=== PATIENT | male | born 1990 | race Hispanic/Latino ===

== ENCOUNTER 2019-10-15 21:21 | Emergency (ER) | payer BC ==
[2019-10-15] MEDS ORDERED: KETOROLAC 30 MG/ML INJ ONE (21:50)
--- NOTE | 2019-10-15 22:28 | EDPHYS ---
Physician Documentation [facility] Name: Kiran Chong Age: 29 yrs Sex: Male : 1990 Arrival Date: 10/15/2019 Time: 21:25 Bed 13 Private MD: ED Physician Vahe Pruitt HPI: 10/16 01:57 This 29 yrs old Male presents to ER via Ambulatory with complaints of SWOLLEN tw4 KNEE. 01:57 The patient presents with an injury, pain, that is acute. The complaints affect the tw4 right knee. Context: The problem was sustained at work, resulted from a direct blow, by industrial equipment. Onset: The symptoms/episode began/occurred today. Modifying factors: The symptoms are alleviated by remaining still, the symptoms are aggravated by movement, weight bearing. Associated signs and symptoms: The patient has no apparent associated signs or symptoms. Treatment prior to arrival includes: no previous treatment. Severity of symptoms: At their worst the symptoms were moderate, in the emergency department the symptoms are unchanged. The patient has not experienced similar symptoms in the past. Historical: - Allergies: 10/15 21:40 No Known Allergies; jb4 - Home Meds: 21:40 None [Active]; jb4 - PMHx: 21:40 None; jb4 - PSHx: 21:40 finger; jb4 - Immunization history:: Adult Immunizations up to date. - Social history:: Smoking status: Patient/guardian denies using tobacco, Patient uses alcohol, occasionally. Patient/guardian denies using street drugs. - Ebola Screening: : No symptoms or risks identified at this time. ROS: 10/16 01:57 MS/extremity: Positive for injury or acute deformity, swelling, tenderness, of the tw4 right knee. 04:29 Constitutional: Negative for fever, chills, and weight loss, Cardiovascular: Negative tw4 for chest pain, palpitations, and edema, Respiratory: Negative for shortness of breath, cough, wheezing, and pleuritic chest pain, Abdomen/GI: Negative for abdominal pain, nausea, vomiting, diarrhea, and constipation, Back: Negative for injury and pain, Skin: Negative for injury, rash, and discoloration, Neuro: Negative for headache, weakness, numbness, tingling, and seizure. Exam: 01:57 Musculoskeletal/extremity: Extremities: tw4 04:28 Constitutional: This is a well developed, well nourished patient who is awake, alert, tw4 and in no acute distress. Head/Face: Normocephalic, atraumatic. Chest/axilla: Normal chest wall appearance and motion. Nontender with no deformity. No lesions are appreciated. Cardiovascular: Regular rate and rhythm with a normal S1 and S2. No gallops, murmurs, or rubs. Normal PMI, no JVD. No pulse deficits. Respiratory: Lungs have equal breath sounds bilaterally, clear to auscultation and percussion. No rales, rhonchi or wheezes noted. No increased work of breathing, no retractions or nasal flaring. Abdomen/GI: Soft, non-tender, with normal bowel sounds. No distension or tympany. No guarding or rebound. No evidence of tenderness throughout. 04:28 Musculoskeletal/extremity: Extremities: noted in the right knee: erythema, pain, swelling, tenderness, There is no evidence of decreased ROM, laceration, puncture. Vital Signs: 10/15 21:40 BP 134 / 71; Pulse 86; Resp 16; Temp 99.0(O); Pulse Ox 99% on R/A; Weight 115.67 kg jb4 (R); Height 6 ft. 1 in. (185.42 cm) (R); Pain 3/10; 21:40 Body Mass Index 33.64 (115.67 kg, 185.42 cm) jb4 MDM: 21:37 Patient medically screened. tw4 10/16 04:27 Differential diagnosis: closed fracture, contusion. Data reviewed: vital signs, nurses tw4 notes. Data interpreted: Pulse oximetry: Interpretation: normal. Test interpretation: by ED physician or midlevel provider: plain radiologic studies. Counseling: I had a detailed discussion with the patient and/or guardian regarding: the historical points, exam findings, and any diagnostic results supporting the discharge/admit diagnosis, radiology results. Special discussion: I discussed with the patient/guardian in detail that at this point there is no indication for admission to the hospital. It is understood, however, that if the symptoms persist or worsen the patient needs to return immediately for re-evaluation. Administered Medications: 10/15 21:52 Drug: TORadol 60 mg Route: IM; Site: right gluteus; jb4 22:34 Follow up: Response: No adverse reaction jb4 22:35 Drug: Cleocin 300 mg Route: PO; jb4 22:35 Follow up: Response: Medication administered at discharge. 4 Disposition: 10/15/19 22:28 Discharged to Home. Impression: Cellulitis of right lower limb. - Condition is Stable. - Discharge Instructions: Cellulitis, Adult. - Prescriptions for Cleocin 300 mg Oral Capsule - take 1 capsule by ORAL route every 6 hours for 10 days; 40 capsule. Ibuprofen 800 mg Oral Tablet - take 1 tablet by ORAL route every 8 hours As needed take with food; 30 tablet. - Medication Reconciliation Form, Thank You Letter, Antibiotic Education, Prescription Opioid Use form. - Follow up: Private Physician; When: Upon discharge from the Emergency Department; Reason: Recheck today's complaints, Continuance of care. - Problem is new. - Symptoms have improved. Signatures: Anupam Lewis RN RN jb4 Vahe Pruitt MD MD tw4 Corrections: (The following items were deleted from the chart) 22:37 22:28 10/15/2019 22:28 Discharged to Home. Impression: Cellulitis of right lower limb. jb4 Condition is Stable. Forms are Medication Reconciliation Form, Thank You Letter, Antibiotic Education, Prescription Opioid Use. Follow up: Private Physician; When: Upon discharge from the Emergency Department; Reason: Recheck today's complaints, Continuance of care. Problem is new. Symptoms have improved. tw4
--- NOTE | 2019-10-15 22:28 | ER ---
Nurse's Notes [facility] Name: Kiran Chong Age: 29 yrs Sex: Male : 1990 Arrival Date: 10/15/2019 Time: 21:25 Bed 13 Private MD: Diagnosis: Cellulitis of right lower limb Presentation: 10/15 21:38 Presenting complaint: Patient states: I have had discomfort redness and warmth in my jb4 right knee for the past 2 days and today I noticed it start swelling after I bumped it at work. Transition of care: patient was not received from another setting of care. Onset of symptoms was October 13, 2019. Risk Assessment: Do you want to hurt yourself or someone else? Patient reports no desire to harm self or others. Initial Sepsis Screen: Does the patient meet any 2 criteria? No. Patient's initial sepsis screen is negative. Does the patient have a suspected source of infection? No. Patient's initial sepsis screen is negative. Care prior to arrival: None. 21:38 Method Of Arrival: Ambulatory jb4 21:38 Acuity: FERMÍN 4 jb4 Historical: - Allergies: 21:40 No Known Allergies; jb4 - Home Meds: 21:40 None [Active]; jb4 - PMHx: 21:40 None; jb4 - PSHx: 21:40 finger; jb4 - Immunization history:: Adult Immunizations up to date. - Social history:: Smoking status: Patient/guardian denies using tobacco, Patient uses alcohol, occasionally. Patient/guardian denies using street drugs. - Ebola Screening: : No symptoms or risks identified at this time. Screenin:42 Abuse screen: Denies threats or abuse. Nutritional screening: No deficits noted. jb4 Tuberculosis screening: No symptoms or risk factors identified. Fall Risk None identified. Assessment: 21:42 General: Appears in no apparent distress. comfortable, Behavior is calm, cooperative, jb4 appropriate for age. Pain: Complains of pain in right knee Pain does not radiate. Pain currently is 3 out of 10 on a pain scale. at worst was 7 out of 10 on a pain scale. Neuro: Level of Consciousness is awake, alert, obeys commands, Oriented to person, place, time, situation. Cardiovascular: Patient's skin is warm and dry. Respiratory: Airway is patent Respiratory effort is even, unlabored, Respiratory pattern is regular, symmetrical. GI: No signs and/or symptoms were reported involving the gastrointestinal system. : No signs and/or symptoms were reported regarding the genitourinary system. EENT: No signs and/or symptoms were reported regarding the EENT system. Derm: Skin is intact, Skin is pink, warm \T\ dry. Right knee has a quarter sized reddened area in the middle of the anterior aspect. Knee is swollen and hot to the touch. Musculoskeletal: Circulation, motion, and sensation intact. Range of motion: intact in all extremities. 22:36 Reassessment: Patient appears in no apparent distress at this time. Patient and/or jb4 family updated on plan of care and expected duration. Pain level reassessed. Patient is alert, oriented x 3, equal unlabored respirations, skin warm/dry/pink. Patient states feeling better. Vital Signs: 21:40 BP 134 / 71; Pulse 86; Resp 16; Temp 99.0(O); Pulse Ox 99% on R/A; Weight 115.67 kg jb4 (R); Height 6 ft. 1 in. (185.42 cm) (R); Pain 3/10; 21:40 Body Mass Index 33.64 (115.67 kg, 185.42 cm) jb4 ED Course: 21:25 Patient arrived in ED. jg7 21:36 Vahe Pruitt MD is Attending Physician. tw4 21:38 Anupam Lewis, RN is Primary Nurse. jb4 21:39 Triage completed. jb4 21:40 Arm band placed on right wrist. jb4 21:42 Patient has correct armband on for positive identification. Bed in low position. Call jb4 light in reach. Side rails up X 1. Pulse ox on. NIBP on. 22:36 No provider procedures requiring assistance completed. Patient did not have IV access jb4 during this emergency room visit. Administered Medications: 21:52 Drug: TORadol 60 mg Route: IM; Site: right gluteus; jb4 22:34 Follow up: Response: No adverse reaction jb4 22:35 Drug: Cleocin 300 mg Route: PO; jb4 22:35 Follow up: Response: Medication administered at discharge. jb4 Outcome: 22:28 Discharge ordered by . tw4 22:36 Discharged to home ambulatory. jb4 22:36 Condition: stable 22:36 Discharge instructions given to patient, Instructed on discharge instructions, follow up and referral plans. no drinking with medication, medication usage, Demonstrated understanding of instructions, follow-up care, medications, Prescriptions given X 2. 22:37 Patient left the ED. jb4 Signatures: Anupam Lewis, RN RN jb4 Vahe Pruitt MD MD tw4 Marianela Ho jg7 Corrections: (The following items were deleted from the chart) 21:54 21:42 Derm: Skin is intact, Skin is pink, warm \T\ dry. jb4 jb4
[2019-10-15] MEDS ORDERED: CLINDAMYCIN HCL 150 MG CAP ONE (22:33)
[2019-10-15 23:02] VITALS: BP 134/71; TEMP 99; O2SAT 99
== END 2019-10-15 22:37 | disposition home or self-care (01) ==
LOC: ER 21:21
DX: L03.115 Cellulitis of right lower limb (principal)
CPT/HCPCS: 96372; 99283

== ENCOUNTER 2022-07-12 15:03 | Emergency (ER) | payer BC ==
--- OUTSIDE RECORDS SUMMARY | 2022-07-12 15:09 | XMS REPORT | Continuity of Care Document ---
:1990 Author Organization [facility] t Address [address] [place] [address] Care Team Providers Name Role Phone Asked, No Pcp Primary Care Physician Unavailable Only, Ang Db Test Attending Clinician Unavailable Angelique Urrutia MD Attending Clinician ANGELIQUE URRUTIA Attending Clinician Unavailable LUCITA SANFORD Attending Clinician Unavailable Payers Payer Name Policy Type Policy Number Effective Date Expiration Date S ource Problems Condition Condition Condition Status Onset Resolution Last Treating Co mments Source Name Details Category Date Date Treatment Clinician Date Gastroesop Gastroesop Disease Active Overview : [facility] hageal hageal 7-[address] reflux reflux 00:00: g of this [facility]osp[facility] disease disease 00 note l might be different from the original. Added automatic ally from request for surgery [id number] Morbid Morbid Disease Active [facility] obesity obesity 6-24 st due to due to 00:00: Hospita excess excess 00 l calories calories Allergies, Adverse Reactions, Alerts Allergy Allergy Status Severity Reaction(s) Onset Inactive Treating Comm ents Source Name Type Date Date Clinician NO KNOWN Drug Active Univers ALLERGIE Class ity of S [facility] Family History Family Member Diagnosis Comments Start Date Stop Date Source Natural father [facility] Natural mother [facility] Paternal grandmother Diabetes [facility] Paternal grandmother Hypertension [facility] Social History Social Habit Start Date Stop Date Quantity Comments Source Exposure to Not sure [facility] SARS-CoV-2 (event) [facility] Alcohol intake 2019-05-17 2019-05-17 Current drinker [facility] 00:00:00 00:00:00 of alcohol Hospital (finding) Cigarette 2019-04-30 2019-04-30 [facility] 00:[facility]00 00:00:00 Hospital Tobacco use and 2019-04-30 2019-04-30 Smokeless [facility] exposure 00:00:00 00:00:00 tobacco non-user Hospital Alcohol Comment 2019-04-30 2019-04-30 very few [facility] 00:00:00 00:00:00 Hospital Cigarettes smoked 2019-04-30 2019-04-[address] current (pack per 00:00:00 00:00:00 Hospita l day) - Reported History of tobacco 2015-04-30 Current smoker [facility] use 00:[facility]:00 Hospital Sex Assigned At [birth year] [facility] 00:[facility]:00 [facility]:00 Hospital Smoking Status Start Date Stop Date Source Unknown if ever smoked [facility] Ex-smoker 2019-04-30 00:00:00 2019-04-30 00:00:[facility] Medications Ordered Filled Start Stop Current Ordering Indication Dosage Frequency Signature Comments Components Source Medication Medication Date Date Medication? Clinician (SIG) Name Name No known 2020-11 No Univers medications - ity of 10:29: [address] ergocalcife 2019-0 Yes [id number] TAKE ONE [facility] 9-23 CAPSULE BY (VITAMIN 00:00: MOUTH 2 Hospit a D2) 50,000 00 TIMES A l unit WEEK capsule Procedures This patient has no known procedures. Plan of Care Planned Activity Planned Date Details Comments Source Future Scheduled 2022-07-10 HEPATITIS B [facility] Test 02:13:30 VACCINES (1 of 3 - 3-dose series) [code = HEPATITIS B VACCINES (1 of 3 - 3-dose series)] Future Scheduled 2022-07-10 COVID-[address] [facility] Test 02:13:30 (#1) [code = COVID-19 VACCINE (#1)] Future Scheduled 2022-07-10 INFLUENZA VACCINE [facility] Test 02:13:30 [code = INFLUENZA VACCINE] Encounters Start End Encounter Admission Attending Care Care Encounter Source Date/Time Date/Time Type Type Clinicians Facility Department ID 2021-11-03 2021-11-03 Laboratory Only, Ang Db Test [facility] [id number] Univers 10:30:00 10:45:00 Only Renan Angelique [facility] [id number] [facility] [id number] Frank as KAMILLA?BLEA [id number] [address] MEDICAL OFFICE BUILDING 2021-11-03 2021-11-03 Outpatient R RENAN [facility] [id number] Univers 10:30:00 10:39:49 ANGELIQUE [facility] 2021-11-03 2021-11-03 Outpatient R [facility] [id number] Univers 10:30:00 10:30:00 [id number] [facility] 2020-07-20 2020-07-20 [facility] [id number] Univers 14:40:00 14:40:00 LUCITA [facility] Results This patient has no known results.
[2022-07-12] MEDS ORDERED: DIPHENHYDRAMINE 50 MG/ML VIAL ONE (15:35)
[2022-07-12] MEDS ORDERED: METHYLPREDNISOLONE 125 MG INJ ONE (15:35)
[2022-07-12] MEDS ORDERED: FAMOTIDINE 20 MG/2 ML VIAL IV ONE (15:36)
[2022-07-12] MEDS ORDERED: ALBUTEROL 2.5 MG/3 ML NEB SOL ONE (15:36)
[2022-07-12] MEDS ORDERED: NA CHLORIDE 0.9% 1,000 ML ONE (15:36)
--- NOTE | 2022-07-12 17:09 | ER ---
Nurse's Notes [facility] Name: Kiran Chong Age: 32 yrs Sex: Male : 1990 Arrival Date: 07/12/2022 Time: 15:06 Bed 10 Private MD: Diagnosis: Bee allergy status Presentation: 07/12 15:23 Chief complaint: Patient states: I was mowing the lawn and I got stung by a bee behind bm7 my knee and now I have bumps everywhere and my chest is tight. Coronavirus screen: At this time, the client does not indicate any symptoms associated with coronavirus-19. Ebola Screen: No symptoms or risks identified at this time. Onset: The symptoms/episode began/occurred suddenly, 45 minute(s) ago. Anaphylaxis evaluation, chest pain. Initial Sepsis Screen: Does the patient meet any 2 criteria? No. Patient's initial sepsis screen is negative. Does the patient have a suspected source of infection? No. Patient's initial sepsis screen is negative. Risk Assessment: Do you want to hurt yourself or someone else? Patient reports no desire to harm self or others. Onset of symptoms was July 12, 2022 at 14:20. 15:23 Method Of Arrival: Ambulatory [facility] 15:23 Acuity: FERMÍN 3 bm7 Triage Assessment: 15:25 General: Appears in no apparent distress. uncomfortable, Behavior is anxious. Pain: bm7 Denies pain. EENT: No deficits noted. No signs and/or symptoms were reported regarding the EENT system. Oral mucosa is moist. Throat is clear. Neuro: No deficits noted. Cardiovascular: Capillary refill < 3 seconds Patient's skin is warm and dry. Chest pain is described as vague. Respiratory: Airway is patent Respiratory effort is even, unlabored, Respiratory pattern is regular, symmetrical, Breath sounds are clear bilaterally. GI: No deficits noted. No signs and/or symptoms were reported involving the gastrointestinal system. : No deficits noted. No signs and/or symptoms were reported regarding the genitourinary system. Derm: No deficits noted. No signs and/or symptoms reported regarding the dermatologic system. Musculoskeletal: No deficits noted. No signs and/or symptoms reported regarding the musculoskeletal system. Historical: - Allergies: 15:25 No Known Allergies; bm7 - Home Meds: 15:25 None [Active]; bm7 - PMHx: 15:25 None; bm7 - PSHx: 15:25 None; bm7 - Immunization history:: Adult Immunizations up to date, Client reports having NOT received the Covid vaccine. - Social history:: Smoking status: Patient denies any tobacco usage or history of. Screenin:30 Abuse screen: Denies threats or abuse. Denies injuries from another. Nutritional kb3 screening: No deficits noted. Tuberculosis screening: No symptoms or risk factors identified. Fall Risk None identified. Assessment: 14:30 General: Appears in no apparent distress. comfortable, Behavior is calm, cooperative, kb3 Received care of pt from triage. 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 States he removed a stinger from his scalp but then started experiencing redness and hives on the right side of his neck. Mild redness noted to right neck, behind ear. No distress, no difficulty breathing. Pt reports mild burning/itching.. Respiratory: Airway is patent Respiratory effort is even, unlabored, Breath sounds are clear bilaterally. Derm: Rash noted that is red, right neck, behind ear. 16:00 General: Pt reports feeling much better. States "the lumps on my neck are all gone." No kb3 redness or hives noted on or around neck/face. Pt states ease of breathing, no distress noted.. Vital Signs: 15:23 BP 119 / 93; Pulse 88; Resp 16; Temp 98.2(TE); Pulse Ox 100% on R/A; Weight 115.67 kg [facility] (R); Height 6 ft. 1 in. (185.42 cm); Pain 0/10; 16:00 BP 121 / 73; Pulse 82; Resp 18; Pulse Ox 100% ; kb3 17:00 BP 117 / 72; Pulse 80; Resp 18; Pulse Ox 98% ; kb3 17:30 BP 122 / 71; Pulse 78; Resp 20; Pulse Ox 98% ; kb3 15:23 Body Mass Index 33.64 (115.67 kg, 185.42 cm) 7 ED Course: 14:30 Patient has correct armband on for positive identification. Bed in low position. Call kb3 light in reach. Side rails up X2. Warm blanket given. Pillow given. 14:30 No provider procedures requiring assistance completed. kb3 15:06 Patient arrived in ED. mr 15:18 Pb Adams PA is PHCP. cp 15:18 Erwin Mccord MD is Attending Physician. cp 15:20 Erin Boudreaux, RN is Primary Nurse. kb3 15:25 Triage completed. bm7 15:25 Arm band placed on right wrist. bm7 16:15 Inserted saline lock: 20 gauge in right forearm, using aseptic technique. kc6 17:35 IV discontinued, intact, bleeding controlled, No redness/swelling at site. kb3 Administered Medications: 15:00 Drug: NS 0.9% 1000 ml Route: IV; Rate: 1 bolus; Site: right antecubital; kb3 16:44 Follow up: Response: No adverse reaction; IV Status: Completed infusion; IV Intake: kb3 1000ml 15:30 Drug: Albuterol 2.5 mg Route: Inhalation; kb3 16:45 Follow up: Response: No adverse reaction kb3 15:32 Drug: Benadryl (diphenhydrAMINE) 50 mg Route: IVP; Site: right antecubital; kb3 16:45 Follow up: Response: No adverse reaction kb3 15:35 Drug: Pepcid (famotidine) 20 mg Route: IVP; Site: right antecubital; kb3 16:45 Follow up: Response: No adverse reaction kb3 15:38 Drug: SOLU-Medrol (methylPrednisoLONE) 125 mg Route: IVP; Site: right antecubital; kb3 16:45 Follow up: Response: No adverse reaction kb3 Medication: 14:30 VIS not applicable for this client. kb3 Intake: 16:44 IV: 1000ml; Total: 1000ml. kb3 Outcome: 17:08 Discharge ordered by . cp 17:37 Discharged to home ambulatory. kb3 17:37 Condition: improved 17:37 Discharge instructions given to patient, Instructed on discharge instructions, follow up and referral plans. medication usage, Demonstrated understanding of instructions, follow-up care, medications, Prescriptions given X 3. 17:37 Patient left the ED. kb3 Signatures: Yancy Wheeler mr Pb Adams PA PA Shital Cornell RN RN bm7 Taylor Tolliver kc6 Erin Boudreaux, RN RN kb3 Corrections: (The following items were deleted from the chart) 16:50 14:30 General: Appears in no apparent distress. comfortable, Behavior is calm, kb3 cooperative, Received care of pt from triage. 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 States he removed a stinger from his scalp but then started experiencing redness and hives on the right side of his neck. Mild redness noted to right neck, behind ear. No distress, no difficulty breathing. Pt reports mild burning/itching.. kb3 16:50 14:30 Respiratory: Airway is patent Respiratory effort is even, unlabored, Breath kb3 sounds are clear bilaterally. kb3 16:50 14:30 Derm: Rash noted that is red, right neck, behind ear kb3 kb3 16:50 14:30 Respiratory: Airway is patent Respiratory effort is even, unlabored, Breath kb3 sounds are clear bilaterally. kb3 16:53 15:30 General: Appears in no apparent distress. comfortable, Behavior is calm, kb3 cooperative, Received care of pt from triage. 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 States he removed a stinger from his scalp but then started experiencing redness and hives on the right side of his neck. Mild redness noted to right neck, behind ear. No distress, no difficulty breathing. Pt reports mild burning/itching.. kb3 16:53 15:30 Respiratory: Airway is patent Respiratory effort is even, unlabored, Breath kb3 sounds are clear bilaterally. kb3 16:53 15:30 Derm: Rash noted that is red, right neck, behind ear kb3 kb3
--- NOTE | 2022-07-12 17:09 | EDPHYS ---
Physician Documentation [facility] Name: Kiran Chong Age: 32 yrs Sex: Male : 1990 Arrival Date: 07/12/2022 Time: 15:06 Bed 10 Private MD: ED Physician Erwin Mccord HPI: 07/12 15:25 This 32 yrs old Male presents to ER via Ambulatory with complaints of Bee cp Sting, Chest Tightness. 15:25 The patient presents with rash, of the chest, shortness of breath, chest tightness. cp 15:25 Onset: The symptoms/episode began/occurred suddenly, just prior to arrival. Associated cp signs and symptoms: Pertinent negatives: chest pain, fever, swelling, vomiting. Possible causes: bees. At home the patient or guardian has treated the symptoms with nothing. Severity of symptoms: in the emergency department the symptoms are unchanged. Historical: - Allergies: 15:25 No Known Allergies; bm7 - Home Meds: 15:25 None [Active]; bm7 - PMHx: 15:25 None; bm7 - PSHx: 15:25 None; bm7 - Immunization history:: Adult Immunizations up to date, Client reports having NOT received the Covid vaccine. - Social history:: Smoking status: Patient denies any tobacco usage or history of. ROS: 15:30 Constitutional: Negative for body aches, chills, fever, poor PO intake. cp 15:30 Eyes: Negative for injury, pain, redness, and discharge. cp 15:30 ENT: Negative for sore throat, difficulty swallowing, difficulty handling secretions. 15:30 Cardiovascular: Positive for chest tightness. 15:30 Respiratory: Positive for shortness of breath. 15:30 Abdomen/GI: Negative for vomiting, diarrhea, constipation. 15:30 Skin: Positive for rash, of the chest. 15:30 All other systems are negative. Exam: 15:35 Constitutional: The patient appears in no acute distress, alert, awake, non-toxic, well cp developed, well nourished. 15:35 Head/Face: Normocephalic, atraumatic. cp 15:35 Eyes: Periorbital structures: appear normal, Conjunctiva: normal, no exudate, no injection, Sclera: no appreciated abnormality, Lids and lashes: appear normal, bilaterally. 15:35 ENT: External ear(s): are unremarkable, Nose: is normal, Mouth: Lips: moist, Oral mucosa: pink and intact, moist, Posterior pharynx: Airway: no evidence of obstruction, patent. 15:35 Chest/axilla: Inspection: rash, that is mild, Palpation: is normal, no crepitus, no tenderness. 15:35 Cardiovascular: Rate: normal, Rhythm: regular, Edema: is not appreciated, JVD: is not appreciated. 15:35 Respiratory: the patient does not display signs of respiratory distress, Respirations: normal, no use of accessory muscles, no retractions, labored breathing, is not present, Breath sounds: are clear throughout, no decreased breath sounds, no stridor, no wheezing. 15:35 Abdomen/GI: Inspection: abdomen appears normal, Palpation: abdomen is soft and non-tender, in all quadrants. 15:35 Neuro: Orientation: to person, place \T\ time. Mentation: is normal, Motor: moves all fours, strength is normal, Sensation: is normal. Vital Signs: 15:23 BP 119 / 93; Pulse 88; Resp 16; Temp 98.2(TE); Pulse Ox 100% on R/A; Weight 115.67 kg bm7 (R); Height 6 ft. 1 in. (185.42 cm); Pain 0/10; 16:00 BP 121 / 73; Pulse 82; Resp 18; Pulse Ox 100% ; kb3 17:00 BP 117 / 72; Pulse 80; Resp 18; Pulse Ox 98% ; kb3 17:30 BP 122 / 71; Pulse 78; Resp 20; Pulse Ox 98% ; kb3 15:23 Body Mass Index 33.64 (115.67 kg, 185.42 cm) bm7 MDM: 15:20 Patient medically screened. cp 15:30 Differential diagnosis: anaphylaxis, angioedema, shock. cp 17:08 Data reviewed: vital signs, nurses notes. cp 17:08 Counseling: I had a detailed discussion with the patient and/or guardian regarding: the cp historical points, exam findings, and any diagnostic results supporting the discharge/admit diagnosis, to return to the emergency department if symptoms worsen or persist or if there are any questions or concerns that arise at home. Response to treatment: the patient's symptoms have markedly improved after treatment, and as a result, I will discharge patient. 07/12 15:21 Order name: IV; Complete Time: 15:30 cp Administered Medications: 15:00 Drug: NS 0.9% 1000 ml Route: IV; Rate: 1 bolus; Site: right antecubital; kb3 16:44 Follow up: Response: No adverse reaction; IV Status: Completed infusion; IV Intake: kb3 1000ml 15:30 Drug: Albuterol 2.5 mg Route: Inhalation; kb3 16:45 Follow up: Response: No adverse reaction kb3 15:32 Drug: Benadryl (diphenhydrAMINE) 50 mg Route: IVP; Site: right antecubital; kb3 16:45 Follow up: Response: No adverse reaction kb3 15:35 Drug: Pepcid (famotidine) 20 mg Route: IVP; Site: right antecubital; kb3 16:45 Follow up: Response: No adverse reaction kb3 15:38 Drug: SOLU-Medrol (methylPrednisoLONE) 125 mg Route: IVP; Site: right antecubital; kb3 16:45 Follow up: Response: No adverse reaction kb3 Disposition Summary: 07/12/22 17:08 Discharge Ordered Location: Home cp Problem: new cp Symptoms: have improved cp Condition: Stable cp Diagnosis - Bee allergy status cp Followup: cp - With: Private Physician - When: 1 - 2 days - Reason: Worsening of condition Discharge Instructions: - Discharge Summary Sheet cp - Bee, Wasp, or Hornet Sting, Adult cp - How to Use an Auto-Injector Pen cp Forms: - Medication Reconciliation Form cp - Thank You Letter cp - Antibiotic Education cp - Prescription Opioid Use cp - Work release form eb Prescriptions: - Pepcid 20 mg Oral Tablet - take 1 tablet by ORAL route every 12 hours for 5 days; 10 tablet; Refills: 0, cp Product Selection Permitted - Prednisone 20 mg Oral Tablet - take 3 tablets by ORAL route once daily for 5 days; 15 tablet; Refills: 0, cp Product Selection Permitted - epinephrine 0.3 mg/0.3 mL Injection auto-injector - inject 0.3 milliliter by INTRAMUSCULAR route as directed as needed for cp anaphylaxis; 1 Kit; Refills: 0, Product Selection Permitted Signatures: Pb Adams PA PA cp McCarthy, Brittany, RN RN bm7 Erin Boudreaux, RN RN kb3
[2022-07-12 19:20] VITALS: TEMP 98.2
[2022-07-12 19:36] VITALS: O2SAT 98
[2022-07-12 19:40] VITALS: BP 122/71
== END 2022-07-12 17:37 | disposition home or self-care (01) ==
LOC: ER 15:03
DX: R21 Rash and other nonspecific skin eruption (principal); R06.02 Shortness of breath; Z91.030 Bee allergy status
CPT/HCPCS: 96361; 96375; 96374; 99284; J1200; J7030; J2930